=== PATIENT | male | born 1955 | race Caucasian/White ===

== ENCOUNTER 2025-04-28 21:35 | Emergency (ER) | payer MEDICARE ==
[~2025-04-28] VITALS: Ht 172.7 cm; Wt 113.4 kg
[2025-04-28 21:56] LABS: BILIRUBIN Negative (Negative); BLOOD 3+ (Negative); CLARITY Cloudy (Clear); COLOR Dark Yellow (Yellow); KETONE 1+ (Negative); LEUKO ESTERASE 3+ (Negative); NITRITE Positive (Negative); PH 5.5 (4.5-8.0); SPECIFIC GRAVITY 1.025 (1.001-1.030); UROBILINOGEN 1.0 E.U./dl (0.0-1.0)
[2025-04-28 22:11] LABS: BACTERIA 4+; RBC 21-30 rbc/hpf (0-2); WBC TNTC wbc/hpf (0-5)
[2025-04-28] MEDS ORDERED: CIPRO500 MG PO (22:36)
[2025-04-28] MEDS ORDERED: Ciprofloxacin Hydrochloride 500 MG TAB PO ONE (22:40)
== END 2025-04-28 22:38 | disposition home or self-care (01) ==
LOC: ED 21:35
PROVIDERS: Internal Medicine
DX: N39.0 Urinary tract infection, site not specified (principal)